=== PATIENT | male | born 1975 | race Caucasian/White ===

== ENCOUNTER → 2023-12-25 | Outpatient (REF) | payer BC, SELFPAY | LOC: DHSLP | PROVIDERS: ATTENDING PHYSICIAN Internal Medicine | DX: G47.30 Sleep apnea, unspecified (principal); R06.83 Snoring; R40.0 Somnolence; I10 Essential (primary) hypertension | CPT/HCPCS: 95800 ==

== ENCOUNTER → 2024-05-27 17:45 | Outpatient (REF) | payer BC, SELFPAY | LOC: CLAB 17:45 | PROVIDERS: ATTENDING PHYSICIAN Otolaryngology | DX: J32.9 Chronic sinusitis, unspecified (principal) | CPT/HCPCS: 87070; 87147; 87186 ==

== ENCOUNTER → 2024-12-02 07:57 | Outpatient (REF) | payer BC, SELFPAY | LOC: DHSLP 07:57 | PROVIDERS: ATTENDING PHYSICIAN Internal Medicine | DX: G47.30 Sleep apnea, unspecified (principal); R06.83 Snoring | CPT/HCPCS: 95810 ==